=== PATIENT | female | born 1935 | race Caucasian/White ===

== ENCOUNTER 2016-12-01 15:07 | Observation (INO) | payer OTHER ==
[~2016-12-01] VITALS: Ht 154.9 cm; Wt 55.8 kg
--- NOTE | ~2016-12-01 | MR18 ---
[facility] A Service of [facility] RADIOLOGY TEXT RESULTS PATIENT: MOLLY REN LOCATION: [facility] 325- : 35 UNIT #: [id number] AGE: [address]: Safia Goldberg MD SEX: F ORDER DR: [id number] [facility] [address] [facility]. [place], [place] [address] [id number] I MR#: [id number] #: [id number] NAME: MOLLY REN : 1935 SEX: F STUDY DATE/TIME: 12/01/2016 21:04 UNIT: [address] ROOM: [address] [place] [address] DESCRIPTION: MR Brain Wo Contrast Attending Physician: Jil Queen M.D. Referring Physician: Leann Limon A.P.R.N. Ordering Physician: Jil Queen M.D. Primary Care Physician: Leann Limon A.P.R.N. MRI CENTER REPORT This report is preliminary unless electronic signature is present. EXAM MRI brain without contrast INDICATION Concern for stroke. Numbness and tingling in the left hand with dizziness today. PROCEDURE Multiplanar, multisequence MR imaging of the brain without the administration of contrast. COMPARISON Head CT and CTA head and neck from 12/01/2016. FINDINGS Diffusion weighted imaging shows no evidence for acute or early subacute infarct. There is no acute hemorrhage, abnormal mass effect, extraaxial collection or hydrocephalus. Moderate to moderately severe periventricular deep and subcortical white matter T2 hyperintensity. Flow voids in the major intracranial vessels are intact. IMPRESSION 1. No acute findings. No evidence for an acute or early subacute infarct. 2. Moderate to moderately severe sequelae of chronic small vessel ischemic change. Dictated by... Terrell Marroquin M.D. THIS IS AN ELECTRONICALLY VERIFIED REPORT Terrell Marroquin M.D. at 12/06/2016 8:32 AM [facility] A Service [facility] RADIOLOGY TEXT RESULTS PATIENT: MOLLY REN LOCATION: A 325-01 : 35 UNIT #: [id number] AGE: [address]: Safia Goldberg MD SEX: F ORDER DR: HEVER/basilio TD: 12/02/2016 06:08 JOB #: [id number] MRI CENTER REPORT Page 1 of 1 COPY
--- NOTE | ~2016-12-01 | CO ---
Unit #: [id number] #: [id number] Patient: MOLLY REN [id number] [facility] [address] [facility]. [place], [place] [address] [id number] I MR#: [id number] NAME: MOLLY REN ROOM: 325 Age: 81 Sex: F Admission Date: 12/01/2016 : 1935 Attending Physician: Safia Goldberg M.D. Primary Care Physician: Leann Limon A.P.R.N. Consultation Date: 12/01/2016 CONSULTATION REPORT PRIMARY CARE PHYSICIAN Phillip Perez M.D. PATIENT IDENTIFICATION This is an 81-year-old female, evaluated in the ER room T5 at [facility]. SOURCE OF INFORMATION Obtained from the patient as well as medical record. Her sons are also at the bedside. HISTORY OF PRESENT ILLNESS This is an 81-year-old female with a past medical history of hypertension, reported transient ischemic attack last week, who presents to [facility] with left upper extremity tingling. Last known well without deficit was about 30 minutes prior to arrival. Symptoms have essentially resolved. She was not considered for alteplase or thrombectomy given that she has resolving symptoms with no current measurable neurologic deficit. A code stroke was called. The patient was actually a walk in and upon evaluation by the ED physician, she was considered for possible code stroke, which was initiated. She underwent CT of the head that was negative without any contrast for any acute intracranial abnormalities. CT angiogram of the head and neck has been done and full dictated report is pending. The patient tells me that she woke up this morning in her usual state of health, but reports that she did not feel quite right. She states that she has not felt great since last week when she experienced a transient ischemic attack. However, she states she was going about her normal activities when she suddenly experienced left upper extremity tingling. She states it was not as bad as the symptoms she experienced last week, which also involved the face at that time, but she states that she was told to come to the hospital if she had any recurrence or new stroke-like symptoms. She states that last week she was in [place] at a ball game. Whenever she was in the concession stand line and noticed that she had numbness and tingling on the left side of her face and arm. She has discharge instructions that was given to her from [facility] in [place] and she was in fact given education for treatment of a transit ischemic attack. She was started on Plavix. She states that prior to the last week, she was taking aspirin. Her aspirin has since been discontinued and she was switched to Plavix. Her NIH at the time of evaluation is currently 0. She is being admitted for observation for further evaluation. We will request an MRI of the brain and request records from [facility]. She denies any exacerbating or alleviating factors. She denies any associated double vision, blurred vision, or loss of vision, neck pain. She does complain Unit #: [id number] #: [id number] Patient: MOLLY REN of recent headache generalized and not severe. She denies any falls, head or neck injury, any history of nerve impingement. She denies any leg involvement. She denies any chest pain, shortness of air, palpitations, any nausea, vomiting or abdominal pain. Her labs here initially include an unremarkable troponin less than 0.05. Her BMP is unremarkable other than a potassium of 3.4 and glucose of 140. CBC is unremarkable and her PT is 10.5, INR 1, PTT 25.4. She does not take any anticoagulants. PAST MEDICAL HISTORY 1. Hypertension. 2. She was treated for transient ischemic attack last week at [facility] in [place] last year. Please see above. 3. Cholecystectomy. 4. Hyperlipidemia. 5. She denies a history of malignancy. 6. She denies a history of diabetes or history of tobacco use or any other neurologic disease. She denies a history of any heart disease, but again, she has a history of hypertension. ALLERGIES No known drug allergies. HOME MEDICATIONS Her medications are being reconciled. I did review her medications in the room. She is on Plavix 75 mg p.o. daily. She is on 2 blood pressure medications as well as a statin, I believe Lipitor 20 mg. She also takes a multivitamin and medication for osteoporosis. Again, her medications are being reconciled. FAMILY HISTORY Noncontributory given her stated age of 81. SOCIAL HISTORY She is a nonsmoker. Denies alcohol abuse or illicit drug use. She is independent at baseline. She has 2 adult sons at the bedside. REVIEW OF SYSTEMS 14-point review of systems was done. Pertinent positives are as discussed above, otherwise negative. PHYSICAL EXAMINATION VITAL SIGNS: Temperature 98.4, pulse is 94, respirations 21, blood pressure 160/73, oxygen saturation 94% on room air, height 4 feet 10 inches, weight is listed as 60 pounds and 27 kilos. We will verify with nursing regarding accuracy as she does not look like her weight is only 60 pounds. NEUROLOGIC: The patient is awake, alert, and oriented to person, place, and time as well as events. No right or left confusion. No finger agnosia. No aphasia, dysarthria, or apraxia. Cranial nerve exam, she demonstrates full smith of vision. Eyes are conjugate without ptosis or nystagmus. Extraocular movements are intact. Sensation of face and scalp is intact. Strength of muscles of the facial expression is intact. Hearing is intact to conversation. She is very hard of hearing. Tongue is midline. Uvula is midline. Palate elevation is normal. Head turning and shoulder shrug is unremarkable. Neck is supple. Motor exam, she demonstrates normal bulk and tone. Strength is equal 5/5 in the extremities. Sensory exam is intact. Gait and Romberg deferred. Unit #: [id number] #: [id number] Patient: MOLLY REN Coordination unremarkable. No past-pointing. Normal xaff-zx-rtga. DIAGNOSTIC STUDIES IMAGING STUDIES: Please see above. LABORATORY RESULTS: Please see above. IMPRESSION 1. Sudden onset of left upper extremity paresthesia, resolved, questionable transient ischemic attack. Must also consider other differential diagnoses given recurrence of same symptoms though we certainly would need to consider carotid disease given her recurrent presentation. CT angiogram of the head and neck is pending. 2. Hypertension. 3. Hyperlipidemia. 4. Nonsmoker. PLAN We will continue Plavix and give a dose of aspirin today only and further recommendations pending workup and further clinical course. Case was discussed with Dr. Lui and he will follow along with you. We will request records from [facility] and request an MRI of the brain. We thank you very much for allowing us to assist in the care of this patient. Dictated by... Ashlee Griffith A.P.R.N. for Terra Milligan/jocelyn TD: 12/02/2016 05:14 JOB #: [id number] CONSULTATION REPORT Page 1 of 1 X Ashlee Griffith APRN X CONSULTATION REPORT
--- NOTE | ~2016-12-01 | CT17 ---
[facility] A Service of [facility] RADIOLOGY TEXT RESULTS PATIENT: MOLLY REN LOCATION: [facility] 325-01 : 35 UNIT #: [id number] AGE: [address]: Safia Goldberg MD SEX: F ORDER DR: [id number] [facility] [address] [place], [place] [address] [id number] I MR#: [id number] Acc #: [id number] NAME: MOLLY REN : 1935 SEX: F STUDY DATE/TIME: 12/01/2016 15:34 UNIT: [address] ROOM: [facility] STUDY DESCRIPTION: CT Angio Head Attending Physician: Jil Queen M.D. Referring Physician: Leann Limon A.P.R.N. Ordering Physician: Alban Franklin M.D. Primary Care Physician: Chang WallerRKit MEDICAL IMAGING REPORT This report is preliminary unless electronic signature is present EXAM CT angiogram head and neck with IV contrast HISTORY Left arm numbness today. FINDINGS IV contrast-enhanced CT angiogram of the head and neck was performed with 3-D reconstructions. This CT exam was performed with one or more of the following radiation dose reduction techniques: Automatic exposure control, adjustment of mA and/or kV according to patient size, and iterative reconstruction. CT ANGIOGRAM NECK: The common carotid arteries are widely patent bilaterally. Minimal calcified atherosclerotic plaque in the carotid bulbs, extending into the proximal internal carotid arteries. Less than 10% stenosis of the proximal left internal carotid artery, by NASCET criteria, and 0% stenosis in the right internal carotid artery. Both vertebral arteries are patent. The left vertebral artery is dominant. Tortuous proximal left vertebral artery. No vertebral artery stenosis is identified. CT ANGIOGRAM BRAIN: Mild atherosclerotic calcified plaque in the cavernous carotid arteries bilaterally. Hypoplastic intracranial right vertebral artery, with dominant intracranial left vertebral artery predominantly supplying the basilar artery. The anterior cerebral, middle cerebral and posterior cerebral arteries are patent bilaterally, with asuu-nl-dkeqpglv multifocal short-segment stenoses in the left posterior communicating artery and right P2 segment. origin of the left posterior cerebral artery. The anterior cerebral and middle cerebral arteries are patent with no focal stenosis identified. No aneurysm or vascular malformation. Patent anterior communicating artery. [facility] A Service of [facility] RADIOLOGY TEXT RESULTS PATIENT: MOLLY REN LOCATION: A 325-01 : 35 UNIT #: [id number] AGE: [address]: Safia Goldberg MD SEX: F ORDER DR: IMPRESSION 1. No hemodynamically significant cervical carotid artery stenosis by NASCET criteria. Less than 10% narrowing in the proximal left internal carotid artery by NASCET criteria. 2. Both vertebral arteries are patent with hypoplastic right vertebral artery. 3. Euuo-rf-pebeojwz multifocal short-segment atherosclerotic stenoses in the left posterior communicating artery and in the right P2 segment. 4. No major intracranial arterial occlusion. Dictated by... Néstor Lyon M.D. THIS IS AN ELECTRONICALLY VERIFIED REPORT Néstor Lyon M.D. at 12/02/2016 11:40 PM DFL/zaire TD: 12/01/2016 23:58 JOB #: [id number] MEDICAL IMAGING REPORT Page 1 of 1 COPY
--- NOTE | ~2016-12-01 | EKG ---
PATIENT: MOLLY REN UNIT #: [id number] Ventricular Rate: 93 BPM Atrial Rate: 93 BPM P-R Interval: 216 ms QRS Duration: 92 ms Q-T Interval: 372 ms QTC Calculation(Bezet): 462 ms P [place]: 17 degrees Calculated R [place]: -37 degrees Calculated T [place]: 32 degrees Diagnosis Line: Sinus rhythm with 1st degree A-V block Diagnosis Line: Left axis deviation Diagnosis Line: Abnormal ECG Diagnosis Line: No previous ECGs available Diagnosis Line: Confirmed by TODD COFFEY MD ([id number]) on Diagnosis Line: 12/02/2016 7:33:06 AM INTERPRETING MD: ERLINDA PALMER
--- NOTE | ~2016-12-01 | HP ---
Unit #: [id number] #: [id number] Patient: MOLLY REN [id number] [address] [address] [id number] I MR#: [id number] NAME: MOLLY REN. ROOM: 325 Age: 81 Sex: F Admission Date: 12/01/2016 : 1935 Attending Physician: Jil Queen M.D. Referring Physician: Leann Limon A.P.R.N. Primary Care Physician: Leann Limon A.P.R.N. HISTORY AND PHYSICAL CHIEF COMPLAINT Strokelike symptoms. HISTORY OF PRESENT ILLNESS The patient is an 81-year-old female with past medical history of recent TIA, hypertension, hyperlipidemia, who presented to the emergency department for evaluation of the above. Of note, the patient was hospitalized in [place] about a week ago for TIA. At that time she had numbness involving the left aspect of the face as well as left upper extremity. She states that she had a "full workup" including an MRI. She was taking aspirin 81 mg daily prior to that hospitalization. She was discharged home on Plavix and told to stop taking the aspirin. She has been taking the Plavix as prescribed. The patient states that since returning from [place], she has felt generally weak. She denies any fever. No cough or cold symptoms. No chest pain. No difficulty breathing. She has had a mild headache. She denies any vomiting or diarrhea. Today, about 30 minutes prior to arrival, the patient experienced tingling in the left upper extremity. She was brought to the emergency department for further evaluation. A Code Stroke was called. The patient was not thought to be a candidate for intervention. NIH score was 0. CT of the head showed nothing acute. She is being admitted to [facility] for evaluation and further treatment. PAST MEDICAL HISTORY 1. Hospitalized in [place] one week ago for TIA (no records). The patient was discharged home on Plavix. 2. Hypertension. 3. Hyperlipidemia. PAST SURGICAL HISTORY Cholecystectomy. SOCIAL HISTORY The patient lives alone. There is no tobacco or alcohol use. She walks without assistance. Her code status is a Do Not Resuscitate. FAMILY HISTORY Family history is notable for her mother having hypertension. Her dad had emphysema. Unit #: [id number] #: [id number] Patient: MOLLY REN ALLERGIES No known allergies. HOME MEDICATIONS 1. Amlodipine and atorvastatin 10/20 daily. 2. Plavix 75 mg daily. 3. Hydrochlorothiazide 12.5 mg daily. REVIEW OF SYSTEMS A complete review of systems is negative except as indicated in the HPI. DIAGNOSTIC STUDIES CARDIOVASCULAR: EKG shows sinus rhythm with first degree AV block and a rate of 93 beats per minute. IMAGING: CT of the head shows nothing acute. CT angiogram shows no hemodynamically significant stenosis. LABORATORY: Troponin is less than 0.05. Comprehensive metabolic panel notable for potassium of 3.4, glucose is 140. Complete blood count is completely normal. INR is 1. Lactic acid 1.6. PHYSICAL EXAMINATION VITAL SIGNS: Temperature is 98.4. Pulse 88. Respirations 11. Blood pressure 160/73. Oxygen saturation is 96% on room air. GENERAL: The patient is a very pleasant female who is awake and alert, in no acute distress. HEENT: The head is atraumatic. Mucous membranes are moist. NECK: Neck is supple. Trachea is midline. CARDIOVASCULAR: Regular rate and rhythm. LUNGS: Lungs are clear to auscultation bilaterally with no increased work of breathing. ABDOMEN: Abdomen is soft, nontender, with bowel sounds present in all four quadrants. EXTREMITIES: Nontender with no pedal edema. NEUROLOGIC: The patient is awake and alert. She is oriented x3. She follows commands. Sensation is subjectively intact involving bilateral upper and lower extremities. There is no appreciable pronator drift. Gait was not assessed. PSYCHIATRIC: Mood and affect are normal. The patient is cooperative. SKIN: Skin of examined areas is warm and dry. ASSESSMEMT The patient is an 81-year-old female with: 1. Paresthesias involving the left upper extremity, concerning for possible transient ischemic attack. 2. History of transient ischemic attack last week. The patient was changed from 81 mg of aspirin daily to Plavix 75 mg p.o. daily which she has been taking as prescribed with the last dose being this morning. 3. Hypokalemia with potassium of 3.4. 4. Hypertension. 5. Hyperlipidemia. PLAN 1. Admit for observation to intermediate level. Unit #: [id number] #: [id number] Patient: MOLLY REN 2. Healthy heart diet if passes bedside swallow. 3. The stroke protocol has already been ordered by Neurology. 4. Consult Neurology regarding TIA. 5. Neuro checks q.4 h. 6. Serial cardiac enzymes. 7. Check magnesium level. 8. Potassium and magnesium protocol. 9. Repeat labs in the morning including magnesium. 10. SCDs for DVT prophylaxis. 11. Regarding code status, the patient is a Do Not Resuscitate. Dictated by Jil Queen M.D. SALVADOR/lakhwinder TD: 12/01/2016 22:35 JOB #: [id number] HISTORY AND PHYSICAL Page 1 of 1 X Jil Queen MD X HISTORY AND PHYSICAL
--- NOTE | ~2016-12-01 | DS ---
Unit #: [id number] #: [id number] Patient: MOLLY AVILA [id number] [address] [address] [id number] I MR#: [id number] NAME: MOLLY AVILA. ROOM: 325 Age: 81 Sex: F Admission Date: 12/01/2016 : 1935 Discharge Date: 12/02/2016 Attending Physician: Safia Goldberg M.D. Referring Physician: Leann Limon A.P.R.N. Primary Care Physician: Leann Limon A.P.R.N. DISCHARGE SUMMARY PRIMARY CARE PROVIDER Leann Limon A.P.R.N. PRINCIPAL DIAGNOSES 1. Left upper extremity paresthesia. 2. Recent history of diagnosis of transient ischemic attack in [place], [place] in early 11/2016. 3. Hypertension. 4. Hyperlipidemia. 5. Mild anxiety. 6. Hypokalemia. CONSULTANTS Dr. Lui, Neurology. PROCEDURES 1. CT scan of the head without contrast on 12/01/2016 with no acute intracranial abnormality. There is small vessel disease noted in the periventricular white matter. 2. CT angiogram of head and neck on 12/01/2016 with no hemodynamically significant cervical carotid stenosis less than 10% narrowing in the proximal left internal carotid artery. Vertebral arteries are patent with a hypoplastic right vertebral artery. Mild to moderate multifocal short-segment atherosclerotic stenosis of the left 4 H [employer] and the right P2 segment. Chest x-ray on 12/01/2016 with no acute findings. 3. MRI of the brain without contrast on 12/01/2016 with no acute findings, moderate to severe sequelae of chronic small vessel ischemic change. CLINICAL HISTORY AND HOSPITAL COURSE Ms. Avila is an 81-year-old female, who presents to the emergency department with left arm tingling. I will note, the patient was just hospitalized in [place], [place] on 12/01/2016 with left facial numbness and was had a negative workup. There was changed from aspirin to Plavix due to concerns about TIA. Yesterday, the patient presented to this facility with left arm tingling. Code stroke was called in the emergency department. By that time, the patient had no symptoms. She was placed in observation for evaluation. The patient underwent extensive workup, all of which was negative. Review of records from [place] also indicated negative MRI there and negative carotid ultrasound with less than 20% stenosis and normal 2-dimensional echocardiogram. The patient admits to me today she thinks that perhaps Unit #: [id number] #: [id number] Patient: MOLLY AVILA she was having some anxiety which led to symptoms. She does complain of chronic hand numbness, though she cannot tell me which fingers are involved which she feels she has to "shake out," however, her symptoms yesterday were whole arm. She denies any significant shoulder pain or neck pain. My clinical suspicion is this is not TIA rather it is an anxiety manifestation and the patient agrees to this as well. Given negative workup going to discharge home on medications as noted. DISCHARGE CONDITION Stable. DISCHARGE STATUS Discharged to home. DISCHARGE MEDICATIONS Plavix 75 mg p.o. daily, hydrochlorothiazide 12.5 mg daily, Norvasc/atorvastatin 10/20 mg one tablet daily. DISCHARGE INSTRUCTIONS The patient was instructed to follow heart healthy diet. She can increase her activity as tolerated. FOLLOWUP The patient will follow up with her primary care provider, Dr. Limon in 2 weeks. Dictated by... Safia Goldberg M.D. MATHEW/jocelyn TD: 12/04/2016 23:37 JOB #: [id number] DISCHARGE SUMMARY Page 1 of 1 X Safia Goldberg MD X DISCHARGE SUMMARY
--- NOTE | ~2016-12-01 | CR72 ---
[facility] A Service of [facility] RADIOLOGY TEXT RESULTS PATIENT: MOLLY REN LOCATION: [facility] 325- : 35 UNIT #: [id number] AGE: [address]: Safia Goldberg MD SEX: F ORDER DR: [id number] [facility] [address] [place], [place] [address] [id number] I MR#: [id number] Acc #: [id number] NAME: MOLLY REN : 1935 SEX: F STUDY DATE/TIME: 12/01/2016 18:04 UNIT: [address] ROOM: [facility] STUDY DESCRIPTION: CR Chest Single View Portable Attending Physician: Jil Queen M.D. Referring Physician: Leann Limon A.P.R.N. Ordering Physician: Alban Franklin M.D. Primary Care Physician: Leann Limon A.P.R.N. MEDICAL IMAGING REPORT This report is preliminary unless electronic signature is present EXAM Portable chest 12/01/2016 HISTORY 81-year-old female with left arm weakness today. Essential hypertension. COMPARISON None. FINDINGS Frontal chest demonstrates clear lungs. No pleural effusion or pneumothorax. Heart size and mediastinum normal. Pulmonary vasculature normal. IMPRESSION No acute cardiopulmonary findings Dictated by... Ramses Adamson M.D. THIS IS AN ELECTRONICALLY VERIFIED REPORT Ramses Adamson M.D. at 12/02/2016 9:59 AM SUNITA/cullen TD: 12/02/2016 02:01 JOB #: [id number] MEDICAL IMAGING REPORT Page 1 of 1 COPY
--- NOTE | ~2016-12-01 | CT72 ---
[facility] A Service of [facility] & [facility] RADIOLOGY TEXT RESULTS PATIENT: MOLLY REN LOCATION: [facility] 325- : 35 UNIT #: [id number] AGE: [address]: Safia Goldberg MD SEX: F ORDER DR: [id number] [facility] [address]. [place], [place] [address] [id number] MR#: [id number] Acc #: [id number] NAME: MOLLY REN : 1935 SEX: F STUDY DATE/TIME: 12/01/2016 15:21 [facility] RO[facility]: [facility] STUDY DESCRIPTION: CT Head Wo Contrast Stroke Attending Physician: Jil Queen M.D. Referring Physician: Leann Limon A.P.R.N. Ordering Physician: Alban Franklin M.D. Primary Care Physician: Chang WallerRKit MEDICAL IMAGING REPORT This report is preliminary unless electronic signature is present EXAM Head CT without contrast for stroke HISTORY Stroke-like symptoms, left arm numbness today. COMMENTS Routine noncontrast head CT is reviewed. This CT exam was performed with one or more of the following radiation dose reduction techniques: automatic exposure control, adjustment of mA and/or kV according to patient size, and iterative reconstruction. COMPARISON STUDIES There is no previous. FINDINGS There is no displaced calvarial fracture. The mastoid air cells are clear. The visualized paranasal sinuses are clear. There are vascular calcifications moderate at the base of the brain. There is no evidence for acute intracranial hemorrhage or extraaxial fluid collection. There is moderate white matter low-attenuation which is nonspecific but probably due to small vessel disease and most confluent in the periventricular white matter. No acute cortical infarct is suspected but if this is of clinical concern followup imaging is recommended preferably with an MRI if the patient is a candidate. The basilar cisterns are patent. There is generalized atrophy. There is no intracranial mass effect. Small vessel disease likely at the external capsules bilaterally. IMPRESSION 1. No acute intracranial abnormality is appreciated but if there is clinical concern for acute CVA followup imaging is recommended preferably with MRI. [facility] A Service of [facility] & [facility] RADIOLOGY TEXT RESULTS PATIENT: MOLLY REN LOCATION: [facility] 325-01 : 35 UNIT #: [id number] AGE: [address]: Safia Goldberg MD SEX: F ORDER DR: 2. No acute intracranial hemorrhage. 3. Atrophy and moderate probable sequelae of small vessel disease. Prominent atherosclerotic vascular calcifications base of the brain. STAT * RESULT Dictated by... Elizabeth Thomas M.D. THIS IS AN ELECTRONICALLY VERIFIED REPORT Elizabeth Thomas M.D. at 12/02/2016 9:07 AM DANIAL/chon TD: 12/01/2016 16:01 JOB #: [id number] MEDICAL IMAGING REPORT Page 1 of 1 COPY
--- NOTE | ~2016-12-01 | CT23 ---
[facility] A Service of [facility] & [facility] RADIOLOGY TEXT RESULTS PATIENT: MOLLY REN LOCATION: [facility] 325-01 : 35 UNIT #: [id number] AGE: [address]: Safia Goldberg MD SEX: F ORDER DR: [id number] [facility] [address] [place], [place] [address] [id number] MR#: [id number] Acc #: [id number] NAME: MOLLY REN : 1935 SEX: F STUDY DATE/TIME: 12/01/2016 15:34 UNIT: [address] ROOM: [facility] STUDY DESCRIPTION: CT Angio Neck Attending Physician: Jil Queen M.D. Referring Physician: Leann Limon A.P.R.N. Ordering Physician: Alban Franklin M.D. Primary Care Physician: Leann Limon A.P.R.N. MEDICAL IMAGING REPORT This report is preliminary unless electronic signature is present EXAM CT angiogram neck with IV contrast HISTORY Left arm numbness today. FINDINGS Please see CT ANGIO HEAD report for combined text results. Dictated by... Néstor Lyon M.D. THIS IS AN ELECTRONICALLY VERIFIED REPORT Néstor Lyon M.D. at 12/02/2016 11:45 PM DFL/psc TD: 12/02/2016 00:00 JOB #: [id number] MEDICAL IMAGING REPORT Page 1 of 1 COPY
[~2016-12-01 15:07] MED LIST: CIPRO PO
[2016-12-01 15:54] LABS: POC - CKMB <1.0 ng/mL (0.0-7.9); POC - TROPONIN <0.05 ng/mL (<=0.05)
[2016-12-01 16:05] LABS: ALBUMIN SERUM 4.1 g/dL (3.5-5.0); BILIRUBIN, DIRECT 0.1 mg/dL (0.0-0.2); BILIRUBIN,INDIRECT 0.8 mg/dL (0.0-0.9); BILIRUBIN,TOTAL 0.9 mg/dL (0.2-2.0); BUN/CREATININE RATIO 17.5; CREATININE SERUM 0.8 mg/dL (0.6-1.4); GLOM FILT RATE Estimated 69.2 mL/min (>60); PROTEIN TOTAL SERUM 7.4 g/dL (6.0-8.3)
[2016-12-01 16:07] LABS: POTASSIUM 3.4 mmol/L (3.5-5.1)
[2016-12-01 16:08] LABS: BASOPHIL% 0.5 % (0-2.5); CALCIUM SERUM 9.4 mg/dL (8.4-10.2); EOSINOPHIL# 0.1 X10e3 (0-0.7); EOSINOPHIL% 1.2 % (0.0-7.0); HEMOGLOBIN 14.5 gm/dL (12.0-16.0); LYMPHOCYTE# 2.5 X10e3 (1.0-3.5); LYMPHOCYTE% 27.4 % (17.0-45.0); MEAN CELL VOLUME 92.2 FL (83-96); MEAN CORPUSCULAR HEMOGLOBIN 30.3 PG (28-34); MEAN CORPUSCULAR HGB CONC 32.9 g/dL (30-36); MEAN PLATELET VOLUME 7.2 FL (6.5-11.5); MONOCYTE# 0.9 X10e3 (0-1.0); MONOCYTE% 9.4 % (3.0-12.0); NEUTROPHIL# 5.6 X10e3 (1.5-7.1); NEUTROPHIL% 61.5 % (40-75); PLATELET COUNT 291 X10e3 (140-420); RED BLOOD COUNT 4.77 X10e (3.90-5.30); WHITE BLOOD COUNT 9.1 X10e3 (4.0-10.5)
[2016-12-01 16:09] LABS: DIFF IND NO
[2016-12-01 16:12] LABS: PARTIAL THROMBOPLASTIN TIME 25.4 SECONDS (23.5-31.3); PROTHROMBIN TIME (PATIENT) 10.5 SECONDS (10.0-11.7)
[2016-12-01] MEDS ORDERED: CLOPIDOGREL75 MG PO (16:13)
[2016-12-01] MEDS ORDERED: AMLODIPINE-ATO1 EAC5 PO (16:13)
[2016-12-01] MEDS ORDERED: CATAPRES0.1 MG PO (16:13)
[2016-12-01] MEDS ORDERED: PATIENT'S PHARMACY (16:18)
[2016-12-01] MEDS ORDERED: HYDROCHLOROTH12.5 MG PO (16:19)
[2016-12-01 20:15] LABS: CHOLESTEROL 149 mg/dL (0-200); HDL CHOLESTEROL 59 mg/dL (35-95); LDL CHOLESTEROL 50 mg/dL (-130); LDL/HDL RATIO 1 RATIO (0-4); TRIGLYCERIDES 198 mg/dL (10-160)
[2016-12-01 22:35] LABS: POC - GFR >60.0 mL/min (>60)
[2016-12-01 23:48] LABS: CK TOTAL 46 IU/L (26-140)
[2016-12-02 05:27] LABS: HEMATOCRIT 42.4 % (35.0-45.0); MEAN CELL VOLUME 91.9 FL (83-96); MEAN CORPUSCULAR HEMOGLOBIN 30.3 PG (28-34); RED BLOOD COUNT 4.61 X10e (3.90-5.30); RED CELL DISTRIBUTION WIDTH 13.1 % (11.0-15.5); WHITE BLOOD COUNT 6.9 X10e3 (4.0-10.5)
[2016-12-02 06:39] LABS: ALBUMIN SERUM 3.5 g/dL (3.5-5.0); BILIRUBIN,TOTAL 0.5 mg/dL (0.2-2.0); BUN/CREATININE RATIO 23.33; CALCIUM SERUM 8.8 mg/dL (8.4-10.2); CREATININE SERUM 0.6 mg/dL (0.6-1.4); GLOM FILT RATE Estimated 85.5 mL/min (>60); MAGNESIUM 2.5 mg/dL (1.6-3.0); POTASSIUM 4.1 mmol/L (3.5-5.1); PROTEIN TOTAL SERUM 6.3 g/dL (6.0-8.3)
[2016-12-02 06:58] LABS: %MB 3.3 % (0.0-4.0)
== END 2016-12-02 12:03 | disposition home or self-care (01) ==
LOC: CED 15:07 → CEDOF 19:00 → CED 19:04 → CEDOF 20:51 → C3A PCU 20:51
PROVIDERS: Emergency Medicine; Family Medicine
DX: R20.9 Unspecified disturbances of skin sensation (principal); I10 Essential (primary) hypertension; E78.5 Hyperlipidemia, unspecified; G31.9 Degenerative disease of nervous system, unspecified; I67.2 Cerebral atherosclerosis; G93.89 Other specified disorders of brain; F41.9 Anxiety disorder, unspecified; E87.6 Hypokalemia; Z86.73 Personal history of transient ischemic attack (TIA), and cerebral infarction without residual deficits; F40.240 Claustrophobia; M81.0 Age-related osteoporosis without current pathological fracture; Z79.899 Other long term (current) drug therapy; Z79.01 Long term (current) use of anticoagulants; Z82.49 Family history of ischemic heart disease and other diseases of the circulatory system; Z90.49 Acquired absence of other specified parts of digestive tract; Z83.6 Family history of other diseases of the respiratory system
CPT/HCPCS: 70450; 70496; 70498; 70551; 71010; 80048; 80053; 80061; 80076; 82550; 82553; 82565; 82947; 83036; 83605; 83735; 84443; 84484; 85025; 85027; 85610; 85730; 93005; 96374; 97161; 97165; 99291; G0378; G8978-GP; G8979-GP; G8980-GP; G8987-GO; G8988-GO; G8989-GO; J2060; J3475; Q9967